=== PATIENT | female | born 1960 | race Caucasian/White ===

== ENCOUNTER 2021-12-05 09:36 | Inpatient (IN) | payer OTHER ==
[~2021-12-05] VITALS: Ht 167.6 cm; Wt 35.4 kg
[2021-12-05] MEDS ORDERED: ALBUTEROL FS 2.5 MG/3 ML VIAL.NEB NEB ONE (10:00)
[2021-12-05] MEDS ORDERED: IPRATROPIUM NEB FS 0.5 MG/2.5 ML AMPUL.NEB NEB ONE (10:00)
[2021-12-05] MEDS ORDERED: methylPREDNISolone SOD SUCC 125 MG/2ML VIAL IV ONE (10:00)
[2021-12-05] MEDS ORDERED: methylPREDNISolone SOD SUCC 125 MG/2ML VIAL ONE (10:07)
--- NOTE | 2021-12-05 10:22 | NUR ---
TECH AT BEDSIDE FOR EKG
--- NOTE | 2021-12-05 10:23 | NUR ---
IV LINE ESTABLISHED ON RFA #20. PHLEB AT BEDSIDE FOR BLOOD DRAW. SOLUMEDROL GIVEN IVP.
--- NOTE | 2021-12-05 10:25 | NUR ---
RT AT BEDSIDE FOR BREATHING TX
[2021-12-05 10:36] LABS: ABG BASE EXCESS 5.4 mmol/L; ABG PCO2 61.3 mmHg (35.0-45.0); ABG PH 7.331 (7.350-7.450); ABG PO2 376.2 mmHg (75.0-100.0); COHb 2.6 % (0.5-1.5); MetHb 0.8 % (0.0-1.5); O2Hb 96.3 % (94.0-97.0); SITE, ABG Right Brachial; VENT MODE, BG 10 LPM NRB
[2021-12-05] MEDS ORDERED: IPRATROPIUM NEB FS 0.5 MG/2.5 ML AMPUL.NEB ONE (10:40)
[2021-12-05] MEDS ORDERED: ALBUTEROL FS 2.5 MG/3 ML VIAL.NEB ONE (10:40)
[2021-12-05 10:48] LABS: BASOPHILS # (AUTO) 0.1 K/uL (0.0-0.2); BASOPHILS % (AUTO) 1.1 % (0.0-2.0); EOSINOPHILS % (AUTO) 0.2 % (0.0-6.0); LYMPHOCYTES # (AUTO) 0.9 K/uL (0.8-4.8); LYMPHOCYTES % (AUTO) 11.9 % (20.0-44.0); MEAN CORPUSCULAR HGB CONC 29 g/dl (31.0-36.0); MEAN CORPUSCULAR VOLUME 75 fL (82-100); MONOCYTES # (AUTO) 0.6 K/uL (0.1-1.30); MONOCYTES % (AUTO) 8.3 % (2.0-12.0); NEUTROPHILS # (AUTO) 5.8 K/uL (1.8-8.9); NEUTROPHILS % (AUTO) 78.5 % (43.0-81.0); PLATELET COUNT (AUTO) 421 K/uL (150-450); WHITE BLOOD COUNT (AUTO) 7.4 K/uL (4.3-11.0)
--- NOTE | 2021-12-05 10:52 | NUR ---
COVID SWAB COLLECTED AND SENT TO LAB
[2021-12-05 10:58] LABS: HEMATOCRIT 17 % (33-45); HEMOGLOBIN 4.9 g/dL (11.5-14.8)
[2021-12-05 11:52] LABS: CALCIUM, SERUM 8.5 mg/dL (8.5-10.1); CARBON DIOXIDE 34 mmol/L (21-32); CHLORIDE 101 mmol/L (98-107); CREATININE 0.8 mg/dL (0.6-1.3); GLUCOSE 114 mg/dL (74-106); POTASSIUM 4.7 mmol/L (3.5-5.1); SODIUM SERUM 136 mmol/L (136-145); UREA NITROGEN, BLOOD 21 mg/dL (7-18)
[2021-12-05 12:05] LABS: ALANINE AMINOTRANSFERASE 17 U/L (12-78); ALBUMIN 2.9 g/dL (3.4-5.0); ALKALINE PHOSPHATASE 93 U/L (46-116); ASPARTATE AMINOTRANSFERASE 22 U/L (15-37); BILIRUBIN,DIRECT 0.1 mg/dL (0.0-0.2); BILIRUBIN,TOTAL 0.2 mg/dL (0.2-1.0); TOTAL PROTEIN, SERUM 7.2 g/dL (6.4-8.2)
--- NOTE | 2021-12-05 13:25 | NUR ---
COMMENCED ON BLOOD TRANSFUSION TYPE O POSTIVE AT 60MLS/HR TEMP-97.8, TN-65, BP-129/62, RR-20.
--- NOTE | 2021-12-05 15:14 | NUR ---
ABOVE BLOOD TRANSFUSION INFUSED WITH NO UNTOWARD REACTION TEMP-98.4, BP-111/54, IA-95, RR-20.
--- NOTE | 2021-12-05 15:25 | NUR ---
BED GIVEN 103
--- NOTE | 2021-12-05 15:53 | NUR ---
REPORT GIVEN TO ANA PAULA BAKER ROOM 103 FOR MANNY
[2021-12-05] MEDS ORDERED: IPRATROPIUM NEB FS 0.5 MG/2.5 ML AMPUL.NEB NEB PRN (16:00)
[2021-12-05] MEDS ORDERED: ZOLPIDEM TARTRATE 5 MG TABLET PO PRN (16:00)
[2021-12-05] MEDS ORDERED: ALBUTEROL FS 2.5 MG/0.5 ML VIAL.NEB NEB PRN (16:00)
[2021-12-05] MEDS ORDERED: LEVOFLOXACIN 500 MG /D5W 100ML 500 MG/100 ML PIGGYBACK IV SCH (16:00)
[2021-12-05] MEDS ORDERED: ACETAMINOPHEN 325 MG TABLET PO PRN (16:00)
--- NOTE | 2021-12-05 16:22 | NUR ---
SS consult requested for failure to thrive. SW will follow up at a later time.
--- NOTE | 2021-12-05 17:00 | NUR ---
teletypesetter notes admitted a 61yu/o female a/o x2-3 came from home with admitting dx od covid/ anemia ,routine admission order done ,v/s stable body check done noted alot of lies , bed bath done , pts on 3 liters of 02 via nc sating 93 % all needs attended too , call light within reach will endorse to rn nite shift for continuity of care . with right ac g 20 intact and patent.will continue to monitor pts,
[2021-12-05 17:02] LABS: LYMPHOCYTES % (MANUAL) 9 % (16-48); MONOCYTES % (MANUAL) 2 % (0-11.0); NEUTROPHILS % (MANUAL) 89 (42-76)
[2021-12-05 18:30] VITALS: BP 109/45
[2021-12-05] MEDS: methylPREDNISolone SOD SUCC 40 MG/ML VIAL IV SCH ×2 (18:57→23:55)
[2021-12-05] MEDS: LEVOFLOXACIN 500 MG /D5W 100ML 500 MG in PREMIX 1 EA IV SCH (18:57)
--- NOTE | 2021-12-05 19:30 | NUR ---
PT RECEIVED ASLEEP IN BED. A/O X 3. NO COMPLAINTS OF PAIN AND NOT IN DISCOMFORT. ON NASAL CANNULA AT 3LPM. NO SOB. IV ACCESS ON RT AC ON SL. ON BED REST AND ON DIAPER. SAFETY MEASURES IN PLACE. BED LOACKED IN LOWEST POSITION, SIDE RAILS UP X2, BED ALARM ON, CALL LIGHT WITHIN REACH. WILL CONTINUE PLAN OF CARE.
[2021-12-05 20:00] VITALS: BP 93/47
[2021-12-06] VITALS (14 sets, daily range): BP systolic 95–120; BP diastolic 41–77
[2021-12-06 06:54] LABS: HEMATOCRIT 23 % (33-45); LYMPHOCYTES # (AUTO) 0.4 K/uL (0.8-4.8); LYMPHOCYTES % (AUTO) 3.2 % (20.0-44.0); MEAN CORPUSCULAR HGB CONC 30 g/dl (31.0-36.0); MEAN CORPUSCULAR VOLUME 79 fL (82-100); MONOCYTES # (AUTO) 0.3 K/uL (0.1-1.30); MONOCYTES % (AUTO) 2.4 % (2.0-12.0); NEUTROPHILS # (AUTO) 10.9 K/uL (1.8-8.9); NEUTROPHILS % (AUTO) 94.4 % (43.0-81.0); PLATELET COUNT (AUTO) 306 K/uL (150-450); WHITE BLOOD COUNT (AUTO) 11.6 K/uL (4.3-11.0)
[2021-12-06 07:11] LABS: ALBUMIN 2.5 g/dL (3.4-5.0); BILIRUBIN,TOTAL 0.2 mg/dL (0.2-1.0); CALCIUM, SERUM 8.2 mg/dL (8.5-10.1); CREATININE 0.6 mg/dL (0.6-1.3); POTASSIUM 4.9 mmol/L (3.5-5.1); TOTAL PROTEIN, SERUM 6.4 g/dL (6.4-8.2)
[2021-12-06 07:13] LABS: HEMOGLOBIN 6.8 g/dL (11.5-14.8)
[2021-12-06 07:19] LABS: THYROID STIMULATING HORMONE 0.869 uIU/mL (0.358-3.74)
--- NOTE | 2021-12-06 07:32 | NUR ---
PT AWAKE IN BED. A/O X 3. NO COMPLAINTS OF PAIN AND NOT IN DISCOMFORT. ON NASAL CANNULA AT 3LPM. NO SOB. IV ACCESS ON RT AC ON SL. ON BED REST AND ON DIAPER. SAFETY MEASURES MAINTAINED. BED LOCKED IN LOWEST POSITION, SIDE RAILS UP X2, BED ALARM ON, CALL LIGHT WITHIN REACH. WILL ENDORSE TO NEXT NURSE ON DUTY FOR CONTINUITY OF CARE.
--- NOTE | 2021-12-06 07:56 | NUR ---
RN NOTE HGB LVL 6.8. MADE AWARE. T.O. 2U PACK RBC.
[2021-12-06 08:36] LABS: IRON, SERUM 18 ug/dl (50-175); TOTAL IRON BINDING CAPACITY 422 ug/dl (250-450)
[2021-12-06] MEDS: ENOXAPARIN SODIUM 40 MG/0.4 ML DISP.SYRIN SQ SCH (09:00)
[2021-12-06] MEDS ORDERED: PERMETHRIN 59 ML BOTTLE TP ONE (09:00)
[2021-12-06 10:50] LABS: BAND % (MANUAL) 2 % (0.0-5.0); LYMPHOCYTES % (MANUAL) 4 % (16-48); MONOCYTES % (MANUAL) 2 % (0-11.0); NEUTROPHILS % (MANUAL) 92 (42-76)
[2021-12-06] MEDS: methylPREDNISolone SOD SUCC 40 MG/ML VIAL IV SCH ×2 (11:03→19:30)
[2021-12-06] MEDS: ENSURE ENLIVE CHOC 237 ML CAN PO SCH ×2 (12:00→17:00)
[2021-12-06] MEDS: PROSOURCE / PROSTAT (PYXIS) 30 ML UDC GT SCH ×2 (13:51→17:00)
--- NOTE | 2021-12-06 19:14 | NUR ---
RN NOTE S/P 2U PACK RBC, TOLERATED WELL. VITALS WNL. DUE MEDS GIVEN. SAFETY MEASURES MAINTAINED. PT TREATED WITH NIX SHAMPOO FOR LICE. WILL CONT TO MONITOR
[2021-12-06] MEDS: LEVOFLOXACIN 500 MG /D5W 100ML 500 MG in PREMIX 1 EA IV SCH (19:30)
--- NOTE | 2021-12-06 19:30 | NUR ---
PT RECEIVED AWAKE IN BED. A/O X 3. NO COMPLAINTS OF PAIN AND NOT IN DISCOMFORT. ON NASAL CANNULA AT 3LPM. NO SOB. IV ACCESS ON RT AC ON SL. ON BED REST AND ON DIAPER. SAFETY MEASURES IN PLACE. HEAD OF BED SLIGHTLY ELEVATED, BED LOCKED IN LOWEST POSITION, SIDE RAILS UP X2, BED ALARM ON, CALL LIGHT WITHIN REACH. WILL CONTINUE PLAN OF CARE.
[2021-12-06] MEDS: SOD FERRIC GLUC 125 MG in IV NS 0.9% 100 ML IV SCH (19:36)
[2021-12-07] VITALS: BP 109/62
[2021-12-07 04:00] VITALS: BP 105/52
[2021-12-07 06:33] LABS: CALCIUM, SERUM 8.2 mg/dL (8.5-10.1); CREATININE 0.5 mg/dL (0.6-1.3); POTASSIUM 4.9 mmol/L (3.5-5.1)
[2021-12-07 07:09] LABS: BASOPHILS % (AUTO) 0.3 % (0.0-2.0); EOSINOPHILS % (AUTO) 0.1 % (0.0-6.0); HEMATOCRIT 38 % (33-45); HEMOGLOBIN 11.8 g/dL (11.5-14.8); LYMPHOCYTES # (AUTO) 0.3 K/uL (0.8-4.8); LYMPHOCYTES % (AUTO) 1.6 % (20.0-44.0); MEAN CORPUSCULAR HGB CONC 31 g/dl (31.0-36.0); MEAN CORPUSCULAR VOLUME 86 fL (82-100); MONOCYTES # (AUTO) 0.2 K/uL (0.1-1.30); NEUTROPHILS # (AUTO) 15.6 K/uL (1.8-8.9); PLATELET COUNT (AUTO) 229 K/uL (150-450); RED BLOOD CELL COUNT(AUTO) 4.47 MIL/uL (4.0-5.2); WHITE BLOOD COUNT (AUTO) 16.1 K/uL (4.3-11.0)
--- NOTE | 2021-12-07 07:42 | NUR ---
PT ASLEEP IN BED BUT EASILY AWAKENS. A/O X 3. NO COMPLAINTS OF PAIN AND NOT IN DISCOMFORT. ON NASAL CANNULA AT 3LPM. NO SOB. IV ACCESS ON RT AC ON SL. ON BED REST AND ON DIAPER. DUE MED GIVEN. NEEDS ATTENDED. SAFETY MEASURES MAINTAINED. HEAD OF BED SLIGHTLY ELEVATED, BED LOCKED IN LOWEST POSITION, SIDE RAILS UP X2, BED ALARM ON, CALL LIGHT WITHIN REACH. WILL ENDORSE TO NEXT NURSE ON DUTY FOR CONTINUITY OF CARE.
--- NOTE | 2021-12-07 07:50 | NUR ---
RN OPEN NOTE PATIENT IS IN BED SLEEPING NO SIGHS OF PAIN AND NOT IN DISCOMFORT., NO GRIMACING , NO MOANING , FACE RELAXED .PATIENT IS ON ON NASAL CANNULA AT 3LPM. NO SOB. IV ACCESS ON RT AC ON 20 G SL. ON BED REST AND ON DIAPER. SAFETY MEASURES MAINTAINED. BED LOCKED IN LOWEST POSITION, SIDE RAILS UP X2, BED ALARM ON, CALL LIGHT WITHIN REACH. WILL CONTINUE TO FALLOW POC
[2021-12-07 08:00] VITALS: BP 108/53
[2021-12-07] MEDS: ENSURE ENLIVE CHOC 237 ML CAN PO SCH ×3 (08:00→16:13)
[2021-12-07] MEDS ORDERED: PRED20TA PO (08:37)
[2021-12-07] MEDS ORDERED: FERR325T23 PO (08:37)
[2021-12-07] MEDS ORDERED: FLUT1DIS INH (08:40)
[2021-12-07] MEDS ORDERED: IPRA3AMP23 IH (08:40)
[2021-12-07] MEDS ORDERED: LEVO500T90 PO (08:40)
[2021-12-07] MEDS: PROSOURCE / PROSTAT (PYXIS) 30 ML UDC GT SCH ×3 (08:40→16:12)
[2021-12-07] MEDS ORDERED: ALBU8.5H8 INH (08:40)
[2021-12-07] MEDS: methylPREDNISolone SOD SUCC 40 MG/ML VIAL IV SCH ×3 (08:46→15:23)
[2021-12-07] MEDS ORDERED: ALBUTEROL FS 2.5 MG/0.5 ML VIAL.NEB NEB PRN (08:47)
[2021-12-07] MEDS: ENOXAPARIN SODIUM 40 MG/0.4 ML DISP.SYRIN SQ SCH (09:32)
[2021-12-07 12:00] VITALS: BP 101/66
--- NOTE | 2021-12-07 14:56 | NUR ---
Hide Cleaner Consult SW received a consult request for failure to thrive. Pt. is a 61 y.o. female who was admitted for respiratory failure. WENDI met with pt. at bed side. SW woke up pt. to conduct assessment, pt. was alert and oriented x2. Pt. did not make eye contact and had a flat affect. Pt. appeared cognitively impaired and appeared to have a short term memory impairment as well (pt. had difficulty recalling information and was unsure on how to answer assessment questions). Pt. confirmed her address but reported she did not have a place to go to. Pt. could not provide information for a contact center consultant. Pt. reported she was not ambulatory and stated she did not know if she needed a cane or walker. Pt. could not report if she received financial assistance. Pt. did not report a hx of psychiatric dx. WENDI assessed for suicidal and homicidal ideation in which the pt. denied plans, means, or intent. DC plan: When WENDI asked pt. for her plans after discharge, pt. stated she did not have a place to go to. WENDI offered pt. support with placement in which the pt appeared agreeable. WENDI provided pt. with senior resources in which the pt. accepted. WEDNI discussed with nurse who informed WENDI that pt. was accepted to [facility] and was awaiting confirmation per CM report. WENDI discussed DC plan with CM. ABUSE PREVENTION: ELDER ABUSE HOTLINE (11/09) ADULT PROTECTIVE SERVICES HOTLINE LONG-TERM CARE [facility] Region AREA ON AGING (HOTLINE) ADULT DAY HEALTH CARE CARE CENTERS: Private pay or Medi-aye funded adult day care [place] [facility] [place] , [facility] , [facility] , [facility] Adult [facility] Care , [facility] Adult [facility] Health Care , [facility] Adult [facility] Center , [facility] , Shorty Mai [facility] , [place] ALZHEIMERS DISEASE/DEMENTIA: Alzheimers Association Helpline [facility] Chapter www.alz.org/[facility] Department of Aging www.lacity.org Family Caregiver [place] www.caregiver.org [place] Caregiver Resources Center/Family Support www.[facility].org CANCER RESOURCES: [place] Cancer Society www.cancer.org Cancer Support Community www.CancerSupportVvsb.org: CancerCare www.cancercare.org [facility] Cancer Support [place] www.ZipRecruiter.org [facility] HEALTH ASSOCIATIONS: AARP www.aarp.org ALS Association (ask for Arabella) www.als.org [place] Diabetes Association www.diabetes.org [place] Heart Association www.heart.org [place] Lung Association www.lungusa.org [place] Parkinson Disease Association www.apdaparkinson.org Sur[place]e [place] , www.redcross.org Arthritis Foundation www.arthritis.org Crohns & Colitis Foundation of [place] www.ccfa.org/chapters/hector National Multiple Sclerosis Society www.nationalmssociety.org Myasthenia Gravis Foundation www.myasthenia-ca.org National Stroke Association www.stroke.org CONSERVATORSHIP & GUARDIANSHIP: AARP Xenia Stern Legal Services Center for Health Care Rights Eldercare Information and Referral Event Av Operator [facility]: [facility] Bar Referral Service [facility] Neighborhood Legal Services Office of the Public Guardian [place] EYESIGHT DISORDER RESOURCES: [place] Macular Degeneration Foundation [facility] www.[facility].org GRIEF AND BEREAVEMENT RESOURCES: The [place] , [facility] THE HOPE Connection , [facility] , Coin HEARING DISORDER RESOURCES: [place] Telephone Access Program Deaf and Disabled Telecommunications Program www.ddtp.[facility].ca.gov HearRx Hearing Centers ([place]) Better Hearing Systems , Coin GLAD ([facility] Agency on Deafness) V/ TTY; Religious Activities Director , [facility] Hearing [place] [facility] -low income hearing aid assistance www.[facility]umed[facility] barnes[facility] hospitalringfoundation.org [place] [facility] , Andrae HELP AT HOME CAREGIVER SUPPORT: In Home Support Services (Must have Medi-[facility] to be eligible) *Ask for a list of agencies that provide services to assist with care in the home. Local Senior Centers also have listings of care providers. HOME SAFETY MODIFICATIONS AND EQUIPMENT: Senior centers have additional referrals. [place] Housing and Community Investment Dept. Handyworker Program (low income) or Visit http://hcidla.[facility].org/oyr-rmmabw-dt for more information National Seating and Mobility and/or ; Forever Active www.foreverIs That Odd Stay Home Safe www.Stayhomesafe.com LIFE ALERT RESPONSE SYSTEM: Quire Services 899-806-9500 www. NetSpark Life Alert 972-357-5962 www.GPMESS Life Station 020-431-7447 www.Curse.Shuame Safe Return 140-237-1319 www.Pewter Games Studios.or/safereturn Cell Phones for Seniors www.Amakem MEALS AND FOOD PROGRAMS: [place] Meals on Wheels [phone] [place] Meals on Wheels [phone] [facility] [phone] [place] to the Homebound [phone] [place] to the Homebound [phone] [facility] to the Homebound [phone] [facility] to the Homebound [phone] [facility] [phone] [facility] [phone] ONE Generation [phone] [facility] [phone] [facility] [phone] Meals on Wheels [phone] For all ages: $6.85/ meal w side. Delivered M-F from 10 am-1pm. Application and payment is done over the phone. Frozen meals available for weekends. [facility] Food [facility] [phone] [facility] Hide Cleaner [phone] [facility] [phone] [facility]- Brown bag lunches [phone] [facility] [phone] MEAL/GROCERY DELIVERY PROGRAMS: [facility] Gourmet Meals [phone]- [facility] [phone]- [facility] Magic Kitchen [phone] Moms Meals [phone] (ask [place] for Discount Select grocery stores may provide delivery. MEDICAL INSURANCE SUPPORT SERVICES: Center for Health Care Rights [phone] Health Insurance Counseling/Advocacy Programs (HICAP)-Must have Medicare. Offers counseling for Medi-Aye eligibility [phone] Department of Public Hide Cleaner [phone] www.[facility].ca.gov Medicare 636-388-4617 www.socialsecurity.org Social Security [phone] SENIOR ACTIVITY PROGRAMS: *Contact a local senior center, adult school, recreation facility or community college for education, fitness, recreation, and social programs. Aquatic Therapy and Adapted Exercise programs through [facility] [phone] Encore at [facility] [phone] www.[facility]/encore H2U- Senior Friends [phone] [place] Senior Programs [phone] www.oasisnet.org Suddenly 65 www.uyytwems88.Shuame SENIOR CENTERS: [facility] [place] [phone] [facility] [phone] [facility] [phone] [facility] [phone] [facility] [phone] [facility] [phone] [facility] [phone] [facility] [phone] [facility] [phone] [facility] [phone] [facility] [phone] [facility] [phone] [facility] [phone] TRANSPORTATION: Local [facility] may have applications for transportation programs and additional resources. ACCESS Services [phone] Transportation for seniors and disabled persons 7 days a week requiring 254 hr. advance reservation. Must apply and register for program kelly eligible. niiu [phone] or [phone] Transportation for seniors and persons with ADA card/metro disabled card in the [facility]. M-F only. Must register for services. ONE GENERATION [phone] Serves 65 years + in conjunction with city Patient Home Monitoringe program. Must be registered with both programs. A to B Transport [phone] Provides wheelchair/gurney van service. Adult Medical Transport [phone] Accepts [facility] [place] with prior authorization. Care Van [phone] Provides wheelchair Transport. [facility] Wide Transportation [phone] Provides gurney service Gentle Care [phone] Gurney Transport. [facility] Town Transportation [phone] wheelchair & gurney transport D Transportation [phone] wheelchair & gurney transport [place] Non-Emergency Transport [phone] wheelchair & gurney transport [facility] Living Center [phone] Short Term Transportation primarily for adults with disabilities on social security income. Nominal fee may apply and a reservation is required. [facility] [phone] or [phone] Down To Earth Transportation [facility] [phone] [place] [address] Services -[phone] For additional programs & services VETERANS RESOURCES: Submissions for Aid and Attendance should be done directly to Federal VA office locatd at : [facility] [address] [facility]. [facility] [phone] National Caregiver Support Line [phone] [facility] Veterans Services Field Office [phone] [place] Department of Affairs [phone] Pension Information [phone]
[2021-12-07] MEDS: SOD FERRIC GLUC 125 MG in IV NS 0.9% 100 ML IV SCH (15:03)
[2021-12-07] MEDS: LEVOFLOXACIN 500 MG /D5W 100ML 500 MG in PREMIX 1 EA IV SCH (16:12)
[2021-12-07 17:40] VITALS: BP 109/58
--- NOTE | 2021-12-07 18:15 | NUR ---
PATIENT IS AT STABLE CONDITION , RECEIVED ORDER TO DISCHARGE PATIENT FROM [facility] , PATIENT WAS DISCHARGED AND TRANSFERRED TO THE [facility] , REPORT WAS GIVEN TO THE DERIK RN CHLORINE CELLS OPERATOR .WRITTEN DC INSTRUCTIONS WERE PROVIDED TO THE EMT .
== END 2021-12-07 18:15 | DRG 140 ==
LOC: ER 09:43 → ICUOV 15:45 → TELE1 16:21
PROVIDERS: ADMIT Internal Medicine; ATTEND Internal Medicine
PROC: 30233N1 Transfusion of Nonautologous Red Blood Cells into Peripheral Vein, Percutaneous Approach (ICD-10-PCS; principal; 2021-12-05)
DX: J44.1 Chronic obstructive pulmonary disease with (acute) exacerbation (principal); J96.21 Acute and chronic respiratory failure with hypoxia; E43 Unspecified severe protein-calorie malnutrition; R62.7 Adult failure to thrive; D50.9 Iron deficiency anemia, unspecified; Z20.822 Contact with and (suspected) exposure to COVID-19; Z68.1 Body mass index [BMI] 19.9 or less, adult; Z72.0 Tobacco use
CPT/HCPCS: 36415; 36600; 71045-TC; 80048-TC; 80053-TC; 80076-TC; 82533; 82803-TC; 82962-TC; 83540-TC; 83880; 84443-TC; 84484-TC; 85025-TC; 86850-TC; 87081-TC; 94799-TC; 97110-TC; 97112-TC; 97530-TC; A4216; C9803; G0378; J1650; J1956; J2916; J2920; J2930; J7030; J7040; J7050; P9016